=== PATIENT | male | born 1990 | race Hispanic/Latino ===

== ENCOUNTER 2024-04-10 20:46 | Emergency (ER) | payer OTHER ==
[~2024-04-10] VITALS: Ht 170.2 cm; Wt 115.7 kg
[2024-04-10] MEDS: ACETAMINOPHEN 325 MG TAB PO ONE (21:06)
[2024-04-10 21:48] VITALS: PULSE 110; RESP 16; TEMP 100.1; O2SAT 98
== END 2024-04-10 21:51 | disposition home or self-care (01) ==
LOC: ER 20:59
DX: R50.9 Fever, unspecified (principal); J10.1 Influenza due to other identified influenza virus with other respiratory manifestations; R05.9 Cough, unspecified; E11.9 Type 2 diabetes mellitus without complications
CPT/HCPCS: 99283

== ENCOUNTER 2024-06-26 18:53 | Emergency (ER) | payer SELFPAY ==
[~2024-06-26] VITALS: Ht 170.2 cm; Wt 115.7 kg
[2024-06-26] MEDS ORDERED: BENZONATATE 100 MG CAP ONE (19:42)
[2024-06-26] MEDS: BENZONATATE 100 MG CAP PO STA (19:44)
[2024-06-26] MEDS: IBUPROFEN 600 MG TAB PO STA (20:13)
[2024-06-26 20:40] LABS: INFLUENZA A AG NEGATIVE (NEGATIVE); INFLUENZA B AG POSITIVE (NEGATIVE)
[2024-06-26 20:41] LABS: CORONAVIRUS COVID-19 AG NEGATIVE (NEGATIVE)
[2024-06-26] MEDS ORDERED: BENZONATATE100 MG PO (20:53)
[2024-06-26 21:49] VITALS: PULSE 96; RESP 17; TEMP 99
[2024-06-26 22:44] VITALS: BP 129/91; PULSE 93; RESP 17; TEMP 99.6; O2SAT 100
== END 2024-06-26 22:45 | disposition home or self-care (01) ==
LOC: ER 19:36
DX: R05.9 Cough, unspecified (principal); J10.1 Influenza due to other identified influenza virus with other respiratory manifestations; R53.81 Other malaise; I10 Essential (primary) hypertension; E11.9 Type 2 diabetes mellitus without complications
CPT/HCPCS: 71046; 99283